=== PATIENT | male | born 1980 | race Caucasian/White ===

== ENCOUNTER 2017-05-19 19:25 | Emergency (ER) | payer BC, OTHER ==
[~2017-05-19] VITALS: Ht 180.3 cm; Wt 83.7 kg
[2017-05-19 19:32] VITALS: TEMP 37; Ht 180.3 cm; Wt 83.7 kg
[2017-05-19] MEDS ORDERED: MoRPHine SULFATE 10 MG/ML CARP/VIAL IV STA ×2 (19:39→20:36)
--- NOTE | 2017-05-19 20:19 | DIAGNOSTIC IMAGING REPORT ---
ANKLE 2 VIEWS CLINICAL HISTORY: RIGHT ANKLE TRAUMA COMPARISON: None. DISCUSSION: Displaced bimalleolar fracture right ankle. Clinical posterior cortical malleolus fracture. Subtalar joint is intact. Ankle mortise is displaced. There is no evidence for soft tissue swelling. IMPRESSION: Displaced by and possibly trimalleolar fracture right ankle. Electronically signed by: Reji Fairchild M.D. 05/19/2017 8:18 PM Dictated Date/Time: 05/19/2017 8:15 PM
--- NOTE | 2017-05-19 20:20 | DIAGNOSTIC IMAGING REPORT ---
RIGHT TIBIA/FIBULA 2 VIEWS ROUTINE CLINICAL HISTORY: trauma, pain Right COMPARISON: None. DISCUSSION: The bones and joint spaces appear intact. There is no evidence of fracture, dislocation or bony disease. There is no evidence for soft tissue swelling. IMPRESSION: Fracture right ankle as described. No more proximal abnormalities appreciated. Electronically signed by: Reji Fairchild M.D. 05/19/2017 8:19 PM Dictated Date/Time: 05/19/2017 8:19 PM
[2017-05-19] MEDS ORDERED: CHN/1 PO (20:28)
[2017-05-19] MEDS ORDERED: MULT-506 PO (20:29)
[2017-05-19] MEDS ORDERED: MIDAZOLAM HCL 1 MG/ML 2ML VIAL ONE (21:06)
[2017-05-19] MEDS ORDERED: OXYCODONE/ACETAMINOPHEN 5-325 TAB PO STA (21:41)
--- NOTE | 2017-05-19 22:06 | DIAGNOSTIC IMAGING REPORT ---
RIGHT ANKLE 2 VIEWS CLINICAL HISTORY: POST REDUCTION RIGHT ANKLE Right COMPARISON: None. DISCUSSION: Mild improvement in alignment status post closed reduction. Fraction appears to be trimalleolar. There is persistent moderate bony distraction. There is no evidence for soft tissue swelling. IMPRESSION: Mild improvement in alignment status post closed reduction. Trimalleolar fracture. Persistent moderate distraction. Electronically signed by: Reji Fairchild M.D. 05/19/2017 10:05 PM Dictated Date/Time: 05/19/2017 10:05 PM
--- NOTE | 2017-05-19 22:39 | EMERGENCY ROOM VISIT NOTE ---
History Report prepared by Dionic[employer]: Adriane Watson Under the Supervision of: Dr. Ritu Coreas D.O. First contact with patient: 19:33 Chief Complaint: LEG PAIN,LEG INJURY Stated Complaint: LEG FRACTURE History of Present Illness The patient is a 37 year old male who presents to the Emergency Room with complaints of persistent right ankle pain starting [employer]. The patient came to the ED by EMS and received morphine and Zofran en route. The patient was playing baseball. He was sliding into second base leading with his right foot. His foot slid into the base and the base did not move. He heard a cracking noise. He denies any head, neck, chest, abdomen, or back injury. He has pain all around his ankle. He has not injured that ankle before. He has not seen an orthopedic surgeon before. He denies any medical problems. Source of History: patient Onset: [employer] Position: ankle (right) Quality: other (injury) Timing: other (persistent) Note: Pt denies other injury. Review of Systems See HPI for pertinent positives & negatives. A total of 10 systems reviewed and were otherwise negative. Family History No pertinent family history stated. Social History Smoking Status: Current Some Day Smoker Marital Status: Occupation Status: employed Current/Historical Medications Scheduled Multivitamin (Multivitamin), 1 TAB PO DAILY Varenicline (Chantix), 1 TAB PO BID Scheduled PRN Oxycodone/Acetaminophen 5MG/325MG (Percocet 5MG/325MG), 1-2 TABS PO Q4H PRN for Pain Allergies Coded Allergies: No Known Allergies (Unverified , 05/19/17) Physical Exam Vital Signs Date Time Temp Pulse Resp B/P (MAP) Pulse Ox O2 Delivery O2 Flow Rate FiO2 05/19/17 23:09 84 18 132/73 98 Room Air 05/19/17 22:07 84 128/78 98 05/19/17 21:35 90 18 118/78 98 05/19/17 21:20 88 18 123/78 98 Room Air 05/19/17 21:15 78 18 113/69 05/19/17 21:09 139/81 95 Room Air 05/19/17 21:00 89 18 128/88 98 05/19/17 20:30 89 18 130/92 98 Room Air 05/19/17 20:23 120/84 100 Room Air 05/19/17 19:32 37.0 91 18 135/73 99 Room Air Physical Exam GENERAL: alert, well appearing, well nourished, in mild to moderate distress, non-toxic EYE EXAM: normal conjunctiva, PERRL and EOM's grossly intact OROPHARYNX: no exudate, no erythema, lips, buccal mucosa, and tongue normal and mucous membranes are moist NECK: supple, no nuchal rigidity, no adenopathy, non-tender LUNGS: Clear to auscultation. Normal chest wall mechanics HEART: no murmurs, S1 normal and S2 normal ABDOMEN: abdomen soft, non-tender, normo-active bowel sounds, no masses, no rebound or guarding. BACK: Back is symmetrical on inspection and there is no deformity, no midline tenderness, no CVA tenderness. SKIN: no rashes and no bruising UPPER EXTREMITIES: upper extremities are grossly normal. LOWER EXTREMITIES: right ankle edema and tenderness to the medial and lateral malleolus worse at the medial, normal DP and PT pulses, normal capillary refill , sensation intact. NEURO EXAM: Normal sensorium, cranial nerves II-XII grossly intact, normal speech, no gross weakness of arms, no gross weakness of legs. Medical Decision & Procedures ER Provider Diagnostic Interpretation: Xray results have been interpreted by the radiologist and me. RIGHT TIBIA/FIBULA 2 VIEWS ROUTINE CLINICAL HISTORY: trauma, pain Right COMPARISON: None. DISCUSSION: The bones and joint spaces appear intact. There is no evidence of fracture, dislocation or bony disease. There is no evidence for soft tissue swelling. IMPRESSION: Fracture right ankle as described. No more proximal abnormalities appreciated. Electronically signed by: Reji Fairchild M.D. 05/19/2017 8:19 PM Dictated Date/Time: 05/19/2017 8:19 PM ANKLE 2 VIEWS CLINICAL HISTORY: RIGHT ANKLE TRAUMA COMPARISON: None. DISCUSSION: Displaced bimalleolar fracture right ankle. Clinical posterior cortical malleolus fracture. Subtalar joint is intact. Ankle mortise is displaced. There is no evidence for soft tissue swelling. IMPRESSION: Displaced by and possibly trimalleolar fracture right ankle. Electronically signed by: Reji Fairchild M.D. 05/19/2017 8:18 PM Dictated Date/Time: 05/19/2017 8:15 PM RIGHT ANKLE 2 VIEWS CLINICAL HISTORY: POST REDUCTION RIGHT ANKLE Right COMPARISON: None. DISCUSSION: Mild improvement in alignment status post closed reduction. Fraction appears to be trimalleolar. There is persistent moderate bony distraction. There is no evidence for soft tissue swelling. IMPRESSION: Mild improvement in alignment status post closed reduction. Trimalleolar fracture. Persistent moderate distraction. Electronically signed by: Reji Fairchild M.D. 05/19/2017 10:05 PM Dictated Date/Time: 05/19/2017 10:05 PM Medications Administered Medications (Trade) Dose Ordered Sig/Luis Route Start Time Stop Time Status Last Admin Dose Admin Morphine Sulfate (MoRPHine SULFATE INJ) 8 mg NOW STAT IV 05/19/17 19:39 05/19/17 19:40 DC 05/19/17 20:21 8 MG Morphine Sulfate (MoRPHine SULFATE INJ) 8 mg NOW STAT IV 05/19/17 20:36 05/19/17 20:37 DC 05/19/17 21:49 8 MG Midazolam HCl (Versed Inj) 2 mg STK-MED ONCE .ROUTE 05/19/17 21:06 05/19/17 21:07 DC 05/19/17 21:24 2 MG Oxycodone/ Acetaminophen (Percocet 5-325mg Tab) 1 tab NOW STAT PO 05/19/17 21:41 05/19/17 21:43 DC 05/19/17 21:58 1 TAB Oxycodone/ Acetaminophen (Percocet 5-325mg Tab) 1 tab NOW ONCE PO 05/19/17 22:45 05/19/17 22:46 DC 05/19/17 22:50 1 TAB Oxycodone/ Acetaminophen (Percocet 5/ 325MG Home Pack) 1 homepack UD ONCE PO 05/19/17 22:45 05/19/17 22:46 DC 05/19/17 22:50 1 HOMEPACK ED Course 1934: The patient was evaluated in room C8. A complete history and physical exam was performed. 1938: Morphine Sulfate 8 mg IV. 2030: I reevaluated the patient. I updated him on the results. 2035: Morphine Sulfate 8 mg IV. 2038: I discussed the patient's case with Dr. Hagen, [facility] - orthopedic surgery. He will look at the X-rays and call back. 2047: Dr. Hagen has looked at the X-rays. He recommend the ankle be reduced here. Can be followed up in the office tomorrow. 2057: I reduced the ankle at this time. 2105: Versed Inj 2 mg IV. 2140: Oxycodone/Acetaminophen 1 tab PO. 2227: Re-evaluated pt. Upon reevaluation, the patient is feeling better. I discussed the findings and the treatment plan with the patient. He verbalizes agreement and understanding. He was discharged home. 2244: Oxycodone/Acetaminophen 1 homepack PO, Oxycodone/Acetaminophen 1 tab PO. Medical Decision Differential diagnosis: Etiologies such as fracture, dislocation, neurovascular compromise, compartment syndrome, soft tissue injury, as well as others were entertained. Medication Reconciliation: I attest that I have personally reviewed the patient' s current medication list. Blood pressure screening: Patient was found to have a slightly elevated blood pressure due to circumstances. I do not believe that the patient requires hypertension monitoring. Pt with severe bimalleolar fx/dislocation, reduced and splinted with improved positioning after discussion with ortho. They will f/u and schedule surgery as outpt. Pt medicated for pain and reduction here, tolerated well without complications and converted to oral pain meds. Pt aware of all findings and plan and was agreeable. No other complaints or sx to suggest additional occult traumatic injury. PMS intact before and after reduction. Consults Time Called: 2035 Consulting Physician: Dr. Hagen, [facility] - orthopedic surgery Returned Call: 2038 I discussed the patient's case with him. He will look at the X-rays and call back. Impression Primary Impression: Ankle fracture, right Scribe Attestation The scribe's documentation has been prepared under my direction and personally reviewed by me in its entirety. I confirm that the note above accurately reflects all work, treatment, procedures, and medical decision making performed by me. Departure Information Dispostion Home / Self-Care Prescriptions Oxycodone/Acetaminophen 5MG/325MG (PERCOCET 5MG/325MG) Tab 1-2 TABS PO Q4H Y for Pain, #20 TAB Prov: Ritu Coreas, 05/19/17 Patient Instructions My [facility] Additional Instructions Please call and follow up with orthopedic surgery tomorrow. You may use the pain medication as prescribed. Do not drive until you're cleared by orthopedics. Please monitor for constipation which is a common side effect of the pain medication. Please drink plenty of water. If you develop any increased pain at the ankle or foot, noticed discoloration of your foot, tingling of your toes or foot, have increasing swelling up your leg, develop trouble breathing, chest pain, dizziness, or any other new concerns, please return the emergency room. Problem Qualifiers Primary Impression: Ankle fracture, right Encounter type: initial encounter Fracture type: closed Qualified Codes: S82.891A - Other fracture of right lower leg, initial encounter for closed fracture
[2017-05-19] MEDS ORDERED: OXYC-57 PO (22:40)
[2017-05-19] MEDS ORDERED: OXYCODONE/ACETAMINOPHEN 5-325 TAB PO ONE (22:45)
[2017-05-19] MEDS ORDERED: PERCOCET HOME PACK PO ONE (22:45)
[2017-05-19 23:09] VITALS: BP 132/73; PULSE 84; O2SAT 98
[2017-05-23] MEDS ORDERED: OXYC-57 PO ×2 (08:37→13:15)
== END 2017-05-19 23:11 | disposition home or self-care (01) ==
LOC: C.EDC 19:26
DX: S82.851A Displaced trimalleolar fracture of right lower leg, initial encounter for closed fracture (principal); M79.604 Pain in right leg; Y93.64 Activity, baseball; Y92.320 Baseball field as the place of occurrence of the external cause; F17.210 Nicotine dependence, cigarettes, uncomplicated

== ENCOUNTER → 2017-05-21 | Outpatient (CLI) | payer BC ==
[~2017-05-21] MED LIST: CHN/1 PO; MULT-506 PO; OXYC-57 PO
--- NOTE | 2017-05-21 12:18 | DIAGNOSTIC IMAGING REPORT ---
RIGHT ANKLE CT CT DOSE: 332.92 mGy.cm HISTORY: CLOSED RIGHT TRIMALLEOLAR FRACTURE TECHNIQUE: Multiaxial CT images of the right ankle were performed and reformatted in the sagittal and coronal plane without the use of contrast. COMPARISON: Right ankle 05/19/2017. FINDINGS: Overlying splint. Redemonstration of the mildly displaced trimalleolar right ankle fracture. The posterior malleolus demonstrates 2 mm of proximal displacement. The medial malleolus fracture is slightly comminuted and demonstrates 3 mm of medial displacement. The oblique lateral malleolus fracture demonstrates mild overlap and 6 mm of posterior displacement. No fractures identified within the talus are calcaneus. There is also mild lateral displacement of the talus in relation to the distal tibia measuring up to 4 mm. Diffuse subcutaneous edema within the ankle. The flexor, extensor, and Achilles tendon appear intact. IMPRESSION: Mildly displaced trimalleolar right ankle fracture as described above. This includes mild lateral displacement the talus in relation to the distal tibia measuring up to 4 mm. Electronically signed by: Bhanu Frazier M.D. 05/21/2017 12:17 PM Dictated Date/Time: 05/21/2017 12:13 PM
== END | disposition home or self-care (01) ==
LOC: C.CTS 11:47
PROVIDERS: ATTEND Physical Medicine & Rehabilitation Sports Medicine
DX: S82.851A Displaced trimalleolar fracture of right lower leg, initial encounter for closed fracture (principal); X58.XXXA Exposure to other specified factors, initial encounter

== ENCOUNTER → 2017-05-23 | Day surgery (SDC) | payer BC ==
[2017-05-21 09:24] VITALS: Ht 180.3 cm; Wt 84.1 kg
[~2017-05-23] VITALS: Ht 180.3 cm; Wt 84.1 kg
[~2017-05-23] MED LIST changes: +ATROPINE SULFATE 0.1 MG/ML 5ML SYR IV PRN; +BUPIVACAINE/EPINEPHRINE 0.25% 1:200,000 30 ML VIAL ONE; +BUPIVACAINE/EPINEPHRINE 0.5% MPF 1:200,000 10 ML VIAL ONE; +CEFAZOLIN 2000 MG/60 ML D5W IV SCH; -CHN/1 PO; +DEXAMETHASONE SOD INJ 4 MG/ML VIAL ONE; +EpHEDrine SULFATE INJ 50 MG/ML AMP IV PRN; +FENTANYL CITRATE INJ 50 MCG/1 ML 2 ML VIAL ONE; +FLUMAZENIL 0.1 MG/1 ML 10 ML VIAL IV PRN; +GLYCOPYRROLATE INJ 0.2 MG/ML VIAL ONE; +HYDROmorphone INJ 1 MG/ML SYR IV PRN; +LABETALOL HCL IV 5 MG/ML 20ML IV PRN; +LACTATED RINGER'S 1000ML 1,000 ML IV SCH; +LIDOCAINE HCL 2% 2 ML VIAL (20MG/ML) ONE; +MIDAZOLAM HCL 1 MG/ML 2ML VIAL ONE; +MoRPHine SULFATE 2 MG/ML CARP IV PRN; +MoRPHine SULFATE 4 MG/ML 1 ML CARP\\VIAL IV PRN; +NALOXONE HCL 0.4 MG/1 ML VIAL/CARP IV PRN; +ONDANSETRON INJ 2 MG/ML 2 ML VIAL IV PRN; +ONDANSETRON INJ 2 MG/ML 2 ML VIAL ONE; +OXYCODONE/ACETAMINOPHEN 5-325 TAB PO PRN; +PROMETHAZINE HCL INJ 12.5 MG in SODIUM CHLORIDE 0.9% 50ML 50 ML IV PRN; +PROPOFOL IV EMULSION 10 MG/ML 20 ML VIAL IV ONE; +SODIUM CHLORIDE 0.9% 1000ML 1,000 ML IV SCH; +SODIUM CHLORIDE 0.9% INJ 10 ML VIAL ONE
--- NOTE | 2017-05-23 08:40 | History & Physical Bridge Note ---
H&P Re-Evaluation Bridge Note: I have examined the patient, reviewed the History & Physical and in the interval since the performance of the History & Physical I have noted the following changes of clinical significance: No changes noted
[2017-05-23] MEDS: POVIDONE-IODINE OP SOLN 30 ML BTL TOP ONE ×2 (11:46→11:47)
--- NOTE | 2017-05-23 13:14 | [facility] Operative Report ---
Operative Report Operative Date May 23, 2017. Pre-Operative Diagnosis Right Ankle Bimalleolar Fracture Post-Operative Diagnosis right ankle trimalleolar fracture Procedure(s) Performed ORIF right ankle fracture Surgeon Dr. Prema Hagen Metal Base Blocker Surgeon(s) Pamella Ruggiero PA-C Estimated Blood Loss 10 cc Findings Fracture Specimens None Complication(s) None Disposition Recovery Room / PACU (stable) Indications Patient is a 37-year-old male who is status post a right ankle injury proximally 5 days ago while playing baseball. He went directly to the emergency room, where x-rays were taken and he was found to have a trimalleolar fracture of his right ankle. He was splinted in the ED and referred to Dr. Hagen for care. Surgical intervention was discussed and he agreed to proceed. Risks and complications were explained to the patient and informed consent was obtained. Description of Procedure Patient was taken to the operating room and placed under general anesthesia with peripheral nerve block. He was given 2 g of IV Ancef for surgical prophylaxis. Timeout was performed and he was prepped and draped in routine sterile fashion. I was present the entire case, please see Dr. Hagen's operative report for further detail. Patient was awakened and taken to the recovery room in stable condition. I attest to the content of the Intraoperative Record and any orders documented therein. Any exceptions are noted below.
--- NOTE | 2017-05-23 13:19 | Discharge Instructions-SurgCtr ---
Discharge Instructions Date of Service May 23, 2017. Visit Reason for Visit: Right Ankle Bimalleolar Fracture Discharge Discharge Diagnosis / Problem: right ankle trimalleolar fracture Discharge Goals Goal(s): Decrease discomfort, Improve function, Increase independence Activity Recommendations Activity Limitations: per Instructions/Follow-up section Weightbearing Status: Right non-weightbearing (lower extremity) Anesthesia . Post Anesthesia Instructions: If you have had General Anesthesia or IV Sedation: * Do not drive today. * Resume driving when surgeon permits. * Do not make important decisions or sign legal documents today. * Call surgeon for: 1. Temperature elevations greater than 101 degrees F. 2. Uncontrollable pain. 3. Excessive bleeding. 4. Persistent nausea and vomiting. 5. Medication intolerance (nausea, vomiting or rash). * For nausea and vomiting use only clear liquids such as: tea, soda, bouillon until nausea subsides, then gradually increase diet as tolerated. * If you have any concerns or questions, call your surgeon's office. If physician is unavailable and it is an emergency, call 911 or go to the nearest emergency room. . Instructions / Follow-Up Instructions / Follow-Up DIET: * Resume previous diet. MEDICATIONS: * Please take your prescriptions as instructed at your pre-op appointment and/ or see medication discharge instructions listed above. * If concerns develop, call your physician's office at . SPECIAL CARE INSTRUCTIONS: * Ice as frequently as tolerated to relieve pain and swelling * Elevate right lower extremity above your heart to relieve pain and swelling * Okay to wiggle your toes frequently, okay to do full range of motion of right knee * Keep dressing clean, dry, intact. Keep splint on at all times. Keep the splint dry. * Use crutches to assist with ambulation. * Do not place weight on her right leg. * No driving * Your surgical extremity may be discolored due to prepping agents used on the skin. A bluish-green tint is a normal variant and should not cause alarm. Call your doctor at [phone] if: * Temperature above 101 degrees * Pain not relieved by pain medicine ordered * There is increased drainage or redness from any incision * You have any unanswered questions, problems or concerns. FOLLOW UP VISIT: * If not already scheduled, please call the office at to schedule a follow-up appointment. * You have a physical therapy appointment on 05/27/2017 at 10:30 AM. * You have a follow-up appointment with Dr. Hagen on 06/07/2017 at 12:45 PM Diet Recommendations Home Diet: no limitations, resume previous diet Procedures Procedures Performed: Right Ankle Bimalleolar Open Reduction Internal Fixation Pending Studies Studies pending at discharge: no Medical Emergencies . Who to Call and When: Medical Emergencies: If at any time you feel your situation is an emergency, please call 911 immediately. . Non-Emergent Contact Non-Emergency issues call your: Surgeon Call Non-Emergent contact if: temperature is above 101, your pain is not controlled, wound has increased drainage, wound has increased redness, wound has increased pain, you have any medication questions . . "Provider Documentation" section prepared by Pamella Camara. . [place] Drug Monitoring Program Search Results: patient reviewed within database, no issues identified
--- NOTE | 2017-05-23 13:20 | [facility] Operative Report ---
Operative Report Operative Date May 23, 2017. Pre-Operative Diagnosis Right Ankle Bimalleolar Fracture Post-Operative Diagnosis Same Procedure(s) Performed Right Ankle Bimalleolar Open Reduction Internal Fixation Surgeon Dr. Prema Hagen Book Sewing Machine Operator Surgeon(s) Dr. Marianela Sapp Estimated Blood Loss 10 cc Findings Medial lateral and posterior malleolar fractures of the right ankle Specimens None Drains none Anesthesia laryngeal mask with popliteal block Complication(s) None Disposition Recovery Room / PACU Implants 2 Synthes 4.0 cannulated screws 40 and 42 mm in length partially short threaded. 8 hole one third tubular locking plate with 1 lag screw 1 distal locking screw two distal unicortical cancellus screws and 3 proximal 3.5 mm cortical screws Indications The patient's 37-year-old male with a trimalleolar fracture dislocation of his right ankle. The medial malleolus is mildly comminuted. There is no evidence of articular impaction or comminution the posterior malleolus fracture is small. It likely does not require fixation. x-rays and CAT scan have been performed Description of Procedure Informed consent was obtained. The patient identified as Lakhwinder Whittington. He identified the operative site as the right ankle which are marked with my initials. The ankle was inspected preoperatively and found to have new blisters there were some petechial hemorrhage consistent with the injury as well as mild swelling. A preoperative surgical timeout was performed. Dose of IV antibiotics was given the anesthetic was administered a padded bump was placed under the right leg elevated. Tourniquet was applied to the right thigh. He right ankle was clipped prepped and then preprepped with chlorhexidine and then prepped and draped in usual sterile fashion DVT prophylaxis will be done with early mobility The limb was exsanguinated with the Esmarch and tourniquet inflated to 25 mmHg. A lateral incision approximately 10 cm in length was made paralleling the distal fibula. Proximally dissection performed down to the level periosteum and then subperiosteal exposure of the fracture was performed. The fracture was opened and cleaned of debris hematoma and soft tissue. The fracture was then anatomically reduced and held with a bone clamp. A 3.5 mm bicortical like screw was placed securing the fracture. This was then neutralized with a 8 hole one third tubular locking plate. 2 unicortical 4.0 cancellus screws were placed distally along with 1 unicortical distal locking screw. 3 bicortical 3.5 mm cortical screws were placed proximally. A medial incision was then made approximately 5 cm in length. This paralleled the axis of the distal tibia and was divided equally over the medial malleolus. The posterior tibial tendon was identified. The anterior joint capsule was disrupted. The fracture site was opened and cleaned of interposed periosteum and hematoma. I visualized the talar dome and the articular surface of the distal tibia which showed no evidence of articular impaction. There were 2-3 small fragments of comminution present anteriorly. One of these was unstable and wants was removed. One was finger impacted into the distal tibia. The other was a larger piece which remained in continuity with the main posterior fracture fragment. The fracture plane was from posterior distal to anterior proximal. The fracture was anatomically reduced and held a bone clamp and fixated with 2 guidewires. Fluoroscopic imaging confirmed the reduction of the fracture and positioning of the hardware. The guidepins were measured and overdrilled and screws of appropriate length were inserted. Anteriorly I was careful due to the comminution. This anterior comminuted piece remained intact and stable. The syndesmosis was stressed and found to be stable. AP lateral and mortise views of the ankle showed anatomic alignment of the fractures good position of the hardware. The posterior malleolar fracture was nearly anatomically reduced and represented only the posterior tubercle/shell fracture of the posterior malleolus. The tourniquet was let down and meticulous hemostasis was performed. Irrigation was done with Betadine lavage. Tourniquet time was approximately 75 minutes. The periosteum was closed over the fracture site medially and the skin was closed with 3-0 Vicryl and yemi. On the lateral side of 3-0 Vicryl and 0 Vicryl utilized to close the periosteum over the plate and skin was closed with 3-0 Vicryl and yemi. The leg was cleaned with wet and dry sponges a soft sterile dressing was applied followed by a posterior splint with the ankle in neutral position. The patient was awakened from anesthesia without difficulty. Taken recovery room in stable condition. There were no specimens or complications. Counts were correct and blood loss was approximately 20 mL. At the conclusion operations both patient's informed her my findings in detail postoperative instructions were given. The patient will be in for physical therapy next week. He is to be nonweightbearing until further notice and perhaps would be nonweightbearing for a period of at least 4 weeks. He may begin some early active movement in physical therapy if his swelling allows and we'll convert him over to a fracture boot. I attest to the content of the Intraoperative Record and any orders documented therein. Any exceptions are noted below.
[2017-05-23 13:56] VITALS: TEMP 36.9
--- NOTE | 2017-05-23 14:35 | Anesthesia Progress Nt - [facility] ---
Anesthesia Post Op Note Date & Time May 23, 2017 at 14:35 Vital Signs Pain Intensity: 6.0 Vital Signs Past 12 Hours Date Time Temp Pulse Resp B/P (MAP) Pulse Ox O2 Delivery O2 Flow Rate FiO2 05/23/17 14:12 81 18 150/90 (110) 97 Room Air 05/23/17 13:59 76 2 94 05/23/17 13:59 79 2 05/23/17 13:56 148/95 05/23/17 13:56 36.9 87 16 122/86 97 Room Air 05/23/17 13:54 69 12 05/23/17 13:54 66 12 96 05/23/17 13:52 139/91 05/23/17 13:51 127/112 05/23/17 13:49 86 7 97 05/23/17 13:49 86 7 05/23/17 13:46 146/80 05/23/17 13:44 89 11 98 05/23/17 13:44 89 11 05/23/17 13:41 134/81 05/23/17 13:39 67 6 99 05/23/17 13:39 68 6 05/23/17 13:36 127/80 05/23/17 13:34 63 1 98 05/23/17 13:34 66 1 05/23/17 13:31 130/77 05/23/17 13:29 64 8 98 05/23/17 13:29 64 8 05/23/17 13:26 126/75 05/23/17 13:24 67 15 98 05/23/17 13:24 67 15 05/23/17 13:23 67 15 05/23/17 13:23 63 15 98 05/23/17 13:21 126/75 05/23/17 13:18 67 8 05/23/17 13:18 66 8 98 05/23/17 13:16 128/74 05/23/17 13:13 90 12 100 05/23/17 13:13 83 12 05/23/17 13:12 72 16 99 05/23/17 13:12 72 16 05/23/17 13:11 136/76 05/23/17 13:10 140/84 05/23/17 13:09 36.8 74 18 140/84 98 Mask 5 05/23/17 10:36 115/65 05/23/17 10:32 74 16 05/23/17 10:32 75 16 100 05/23/17 10:31 113/59 05/23/17 10:29 75 16 99 05/23/17 10:29 74 16 05/23/17 10:26 110/62 05/23/17 10:24 73 12 98 05/23/17 10:24 73 12 05/23/17 10:21 115/61 05/23/17 10:19 77 15 05/23/17 10:19 80 15 99 05/23/17 10:18 71 15 99 05/23/17 10:18 70 15 05/23/17 10:16 112/59 05/23/17 10:13 72 15 05/23/17 10:13 72 15 99 05/23/17 10:11 111/53 05/23/17 10:08 69 13 05/23/17 10:08 68 13 99 05/23/17 10:06 108/58 05/23/17 10:03 72 17 99 05/23/17 10:03 71 17 05/23/17 10:02 70 13 99 05/23/17 10:02 71 13 05/23/17 10:01 107/59 05/23/17 09:57 67 14 99 05/23/17 09:57 68 14 05/23/17 09:56 108/56 05/23/17 09:52 79 17 05/23/17 09:52 80 17 99 05/23/17 09:51 110/56 05/23/17 09:47 73 12 99 05/23/17 09:47 75 12 05/23/17 09:46 113/61 05/23/17 09:42 73 13 05/23/17 09:42 74 13 99 05/23/17 09:41 77 13 105/64 99 05/23/17 09:41 76 13 05/23/17 09:36 71 15 109/67 99 05/23/17 09:36 71 15 05/23/17 09:31 71 14 05/23/17 09:31 70 14 119/68 99 05/23/17 09:30 73 13 05/23/17 09:30 72 13 99 05/23/17 09:26 116/68 05/23/17 09:25 69 11 05/23/17 09:25 67 11 99 05/23/17 09:21 112/68 05/23/17 09:20 70 12 99 05/23/17 09:20 70 12 05/23/17 09:16 128/77 05/23/17 09:15 79 18 100 05/23/17 09:15 78 18 05/23/17 09:10 84 05/23/17 09:10 89 98 05/23/17 08:34 36.8 82 18 132/81 (98) 96 Room Air Notes Mental Status: alert / awake / arousable, participated in evaluation Pt Amnestic to Procedure: Yes Nausea / Vomiting: adequately controlled Pain: adequately controlled Airway Patency, RR, SpO2: stable & adequate BP & HR: stable & adequate Hydration State: stable & adequate Anesthetic Complications: no major complications apparent
[2017-05-23 14:36] VITALS: BP 144/73; PULSE 84; O2SAT 97
== END | disposition home or self-care (01) ==
LOC: X.SURG 08:15
PROVIDERS: ATTEND Physical Medicine & Rehabilitation Sports Medicine
DX: S82.851A Displaced trimalleolar fracture of right lower leg, initial encounter for closed fracture (principal); W21.89XA Striking against or struck by other sports equipment, initial encounter; Y93.64 Activity, baseball; F17.210 Nicotine dependence, cigarettes, uncomplicated

== ENCOUNTER → 2017-06-07 | Outpatient (CLI) | payer BC ==
[~2017-06-07] MED LIST changes: -ATROPINE SULFATE 0.1 MG/ML 5ML SYR IV PRN; -BUPIVACAINE/EPINEPHRINE 0.25% 1:200,000 30 ML VIAL ONE; -BUPIVACAINE/EPINEPHRINE 0.5% MPF 1:200,000 10 ML VIAL ONE; -CEFAZOLIN 2000 MG/60 ML D5W IV SCH; -DEXAMETHASONE SOD INJ 4 MG/ML VIAL ONE; -EpHEDrine SULFATE INJ 50 MG/ML AMP IV PRN; -FENTANYL CITRATE INJ 50 MCG/1 ML 2 ML VIAL ONE; -FLUMAZENIL 0.1 MG/1 ML 10 ML VIAL IV PRN; -GLYCOPYRROLATE INJ 0.2 MG/ML VIAL ONE; -HYDROmorphone INJ 1 MG/ML SYR IV PRN; -LABETALOL HCL IV 5 MG/ML 20ML IV PRN; -LACTATED RINGER'S 1000ML 1,000 ML IV SCH; -LIDOCAINE HCL 2% 2 ML VIAL (20MG/ML) ONE; -MIDAZOLAM HCL 1 MG/ML 2ML VIAL ONE; -MoRPHine SULFATE 2 MG/ML CARP IV PRN; -MoRPHine SULFATE 4 MG/ML 1 ML CARP\\VIAL IV PRN; -NALOXONE HCL 0.4 MG/1 ML VIAL/CARP IV PRN; -ONDANSETRON INJ 2 MG/ML 2 ML VIAL IV PRN; -ONDANSETRON INJ 2 MG/ML 2 ML VIAL ONE; -OXYCODONE/ACETAMINOPHEN 5-325 TAB PO PRN; -PROMETHAZINE HCL INJ 12.5 MG in SODIUM CHLORIDE 0.9% 50ML 50 ML IV PRN; -PROPOFOL IV EMULSION 10 MG/ML 20 ML VIAL IV ONE; -SODIUM CHLORIDE 0.9% 1000ML 1,000 ML IV SCH; -SODIUM CHLORIDE 0.9% INJ 10 ML VIAL ONE
== END | disposition home or self-care (01) ==
LOC: C.RDSM 13:47
PROVIDERS: ATTEND Physical Medicine & Rehabilitation Sports Medicine
DX: S82.851A Displaced trimalleolar fracture of right lower leg, initial encounter for closed fracture (principal); X58.XXXA Exposure to other specified factors, initial encounter

== ENCOUNTER → 2017-06-21 | Outpatient (CLI) | payer BC | END | disposition home or self-care (01) | LOC: C.RDSM 12:35 | PROVIDERS: ATTEND Physical Medicine & Rehabilitation Sports Medicine | DX: S82.851A Displaced trimalleolar fracture of right lower leg, initial encounter for closed fracture (principal); X58.XXXA Exposure to other specified factors, initial encounter ==

== ENCOUNTER → 2017-07-10 | Outpatient (CLI) | payer BC | END | disposition home or self-care (01) | LOC: C.RDSM 09:50 | PROVIDERS: ATTEND Physical Medicine & Rehabilitation Sports Medicine | DX: S82.851A Displaced trimalleolar fracture of right lower leg, initial encounter for closed fracture (principal); X58.XXXA Exposure to other specified factors, initial encounter ==

== ENCOUNTER → 2017-08-12 | Outpatient (CLI) | payer BC | END | disposition home or self-care (01) | LOC: C.RDSM 17:18 | PROVIDERS: ATTEND Physical Medicine & Rehabilitation Sports Medicine | DX: S82.851A Displaced trimalleolar fracture of right lower leg, initial encounter for closed fracture (principal); X58.XXXA Exposure to other specified factors, initial encounter ==

== ENCOUNTER → 2017-11-22 | Outpatient (CLI) | payer BC | END | disposition home or self-care (01) | LOC: C.RDSM 07:27 | PROVIDERS: ATTEND Physical Medicine & Rehabilitation Sports Medicine | DX: S82.851D Displaced trimalleolar fracture of right lower leg, subsequent encounter for closed fracture with routine healing (principal); X58.XXXD Exposure to other specified factors, subsequent encounter ==